=== PATIENT | female | born 1935 | race Caucasian/White ===

== ENCOUNTER → 2017-04-16 13:47 | Outpatient (CLI) | payer MEDICARE ==
[2015-08-03 08:33] VITALS: BMI 22.8
[~2017-04-16 13:47] MED LIST: ASPIRIN EC81 M1 PO; AZELASTINE137 MCG/0. NASAL; CARDURA1 MG PO; CENTRUM COMPLE1 EACH PO; DYAZIDE 37.5/251 CAP PO; ESTRACE 0.5 MG0.5 MG PO; LISINOPRIL-HCTZ1 T11 PO; PRINIVIL20 MG PO; VITAMIN D PO; ZYRTEC10 MG PO
== END | disposition home or self-care (01) ==
LOC: D.MAMMO 10:15
DX: Z12.31 Encounter for screening mammogram for malignant neoplasm of breast (principal)

== ENCOUNTER 2018-07-26 23:51 | Outpatient (CLI) | payer MEDICARE ==
[2015-08-03 08:33] VITALS: BMI 22.8
== END 2018-07-26 23:52 | disposition home or self-care (01) ==
LOC: D.MAMMO 23:51
PROVIDERS: ATTEND Family Medicine
DX: Z12.31 Encounter for screening mammogram for malignant neoplasm of breast (principal)